=== PATIENT | female | born 1950 | race African-American/Black ===

== ENCOUNTER 2019-06-30 01:25 | Inpatient (IN) | payer MEDICARE ==
[2019-06-30] VITALS (7 sets, daily range): BP systolic 113–178; BP diastolic 52–76; Ht 170.2 cm; Wt 89.1 kg
[~2019-06-30] VITALS: Ht 170.2 cm; Wt 89.1 kg
[2019-06-30] MEDS ORDERED: LOSARTAN-HCTZ1 EAC1 PO (01:33)
[2019-06-30] MEDS ORDERED: BUPROPION XL150 MG PO (01:34)
[2019-06-30] MEDS ORDERED: ZYLOPRIM100 MG PO (01:34)
[2019-06-30] MEDS ORDERED: METOPROLOL TART25 MG (01:34)
[2019-06-30] MEDS ORDERED: HYDROXYUREA500 MG GT (01:35)
[2019-06-30] MEDS ORDERED: K-TAB10 MEQ PO (01:35)
[2019-06-30] MEDS ORDERED: NORVASC10 MG PO (01:35)
[2019-06-30] MEDS ORDERED: PLAVIX75 MG PO (01:36)
[2019-06-30] MEDS ORDERED: LIPITOR80 MG PO (01:36)
[2019-06-30] MEDS ORDERED: BAYER CHEWABLE81 MG PO (01:55)
[2019-06-30 01:58] LABS: HEMATOCRIT 41.7 % (36.0-48.0); HEMOGLOBIN 13.3 g/dL (12-16); MCH 23.8 pg (26.0-34.0); MCHC 31.9 g/dL (31.0-37.0); MCV 74.6 fL (80.0-100.0); RBC 5.59 10x6/uL (4.00-5.40); RDW 24.9 % (11.5-14.5); WBC 2.3 10x3/uL (4.8-10.8)
[2019-06-30 02:01] LABS: PLATELET COUNT 14 10x3/uL (130-400)
[2019-06-30 02:04] LABS: CALC OSMOLALITY 278 mosm/kg (275-300); CALCIUM 9.6 mg/dL (8.5-10.1); CARBON DIOXIDE 26.8 mmol/L (21.0-32.0); CHLORIDE - SERUM 103 mmol/L (98-107); GLUCOSE 96 mg/dL (74-106); POTASSIUM - SERUM 3.1 mmol/L (3.5-5.1); SODIUM 139 mmol/L (136-145); UREA NITROGEN 14 mg/dL (7-18); eGFR NON AFRICAN AMERICAN 58 mL/min (90-120)
[2019-06-30 02:05] LABS: APTT 29.5 SECONDS (22.8-39.4); BILIRUBIN NEGATIVE (NEGATIVE); GLUCOSE NEGATIVE (NEGATIVE); KETONE NEGATIVE (NEGATIVE); NITRITE NEGATIVE (NEGATIVE); PROTIME 13.1 SECONDS (11.6-15.0); UROBILINOGEN NORMAL (NORMAL)
[2019-06-30 02:20] LABS: ALBUMIN 3.9 g/dL (3.4-5.0); ALKALINE PHOSPHATASE 121 U/L (30-120); ALT (SGPT) 39 U/L (10-68); BILIRUBIN - TOTAL 1.04 mg/dL (0.2-1.3); CKMB 0.2 U/L (0.0-3.6); CREATINE KINASE 110 UL (21-215); MAGNESIUM - SERUM 2.3 mg/dL (1.8-2.4); PROTEIN - SERUM 7.8 g/dL (6.4-8.2)
[2019-06-30 02:21] LABS: TROPONIN-I < 0.017 ng/mL (0.000-0.060)
--- NOTE | 2019-06-30 02:25 | NUR ---
BLOOD CONSENT FORMS SIGNED BY PATIENT
--- NOTE | 2019-06-30 02:29 | NUR ---
PT GIVEN BLANKET, DENIES ANY FURTHER NEEDS AT THIS TIME. WILL CONTINUE TO MONITOR.
[2019-06-30 02:44] LABS: EOSINOPHILS 2 % (0-7); LYMPHOCYTES 65 % (15-50); MONOCYTES 6 % (2-11); NEUTROPHILS 27 % (40-80); PLATELET ESTIMATE DECREASED
[2019-06-30 07:18] LABS: CKMB 0.3 U/L (0.0-3.6); CREATINE KINASE 101 UL (21-215)
[2019-06-30 07:20] LABS: TROPONIN-I < 0.017 ng/mL (0.000-0.060)
--- NOTE | 2019-06-30 08:07 | NUR ---
resting in bed, no distress noted, alert and o, sl in place, cont to monitor
[2019-06-30 11:05] LABS: CKMB 0.3 U/L (0.0-3.6); CREATINE KINASE 111 UL (21-215); TROPONIN-I < 0.017 ng/mL (0.000-0.060)
--- NOTE | 2019-06-30 11:17 | NUR ---
immune globulin started at 1115, vitals wnl, cont to monitor
[2019-07-01 05:05] VITALS: BP 134/59
[2019-07-01 05:21] LABS: BASOPHILS 0 % (0-2); EOSINOPHILS 0.6 % (0-7); HEMATOCRIT 37.1 % (36.0-48.0); HEMOGLOBIN 11.7 g/dL (12-16); IMMATURE GRANULOCYTES 0.6 % (0-5); LYMPHOCYTES 37.9 % (15-50); MCH 23.6 pg (26.0-34.0); MCHC 31.5 g/dL (31.0-37.0); MCV 74.9 fL (80.0-100.0); MONOCYTES 14.9 % (2-11); RBC 4.95 10x6/uL (4.00-5.40); RDW 24.8 % (11.5-14.5)
[2019-07-01 05:29] LABS: PLATELET COUNT 11 10x3/uL (130-400); WBC 1.6 10x3/uL (4.8-10.8)
[2019-07-01 05:30] LABS: CALCIUM 8.6 mg/dL (8.5-10.1); CARBON DIOXIDE 25.2 mmol/L (21.0-32.0); CREATININE - SERUM 0.9 mg/dL (0.6-1.3); POTASSIUM - SERUM 3.2 mmol/L (3.5-5.1)
--- NOTE | 2019-07-01 07:10 | NUR ---
ALERT AND ORIENTED. UP AD KATERINA. NO C/O PAIN. NO S/S OF ACUTE DISTRESS NOTED. PUT ON NEUTROPENIC PRECAUTIONS THIS AM D/T WBC 1.7. IV TO LEFT HAND, SL. SITE PATENT WITHOUT REDNESS OR SWELLING. POTASSIUM 3.2 THIS AM, WILL FOLLOW ELECTROLYTE PROTOCOL. DENIES ANY NEEDS AT THIS TIME. CALL LIGHT IN REACH. WILL CONTINUE TO MONITOR.
[2019-07-01 08:33] VITALS: BP 114/71
[2019-07-01 12:05] VITALS: BP 131/66
[2019-07-01 15:27] LABS: BASOPHILS 0 % (0-2); EOSINOPHILS 0.2 % (0-7); HEMATOCRIT 38.7 % (36.0-48.0); IMMATURE GRANULOCYTES 0.8 % (0-5); LYMPHOCYTES 7.1 % (15-50); MCH 23.8 pg (26.0-34.0); MCV 76.8 fL (80.0-100.0); MONOCYTES 7.3 % (2-11); NEUTROPHILS 84.6 % (40-80); RBC 5.04 10x6/uL (4.00-5.40); RDW 25.2 % (11.5-14.5)
[2019-07-01 15:28] LABS: WBC 4.8 10x3/uL (4.8-10.8)
[2019-07-01 15:29] LABS: PLATELET COUNT 17 10x3/uL (130-400)
[2019-07-01 15:41] LABS: PLATELET ESTIMATE DECREASED
--- NOTE | 2019-07-01 17:43 | EC ---
PATIENT:ZAID MITCHELL DATE OF SERVICE: 06/30/19 SEX: F MEDICAL RECORD: [id number] DATE OF : [birth year] LOCATION:[facility] AGE OF PATIENT: 68 ADMISSION DATE: 06/30/19 REFERRING PHYSICIAN: INTERPRETING PHYSICIAN: CLARITA ENGEL MD ECHOCARDIOGRAM REPORT ECHO CHARGES 4 ECHO COMPLETE Date: 06/30/19 CLINICAL DIAGNOSIS: CHF ECHOCARDIOGRAPHIC MEASUREMENTS (adult normal given) AC root (d.<3.7cm) 3.4 cm LV Septum d (<1.2 cm> 0.9 cm Valve Excursion 2.2 cm LV Septum (systole) 1.7 cm Left Atria (s.<4.0cm> 3.3 cm LVPW d(<1.2cm) 1.1 cm RV (d.<2.3cm) 2.1 cm LVPW (sytole) 1.6 cm LV diastole(<5.6CM) 4.5 cm MV E-F(>70mm/sec) cm LV systole 2.1 cm LVOT Diameter 2.0 cm MV exc.(>10mm) cm Est.ejection fraction (50-75%) % DOPPLER: LVIT cm/sec A 87.0 cm/sec E 104 cm/sec LA cm/sec RVSP 36.0 mmHg LVOT 126 cm/sec AOP1/2T m/s Asc. Ao 153 cm/sec RVOT 75.0 cm/sec RA cm/sec PA 95.0 cm/sec AV Gradient Peak 9.3 mmHg AV Mean 5.5 mmHg AV Area 2.4 cm MV Gradient Peak 6.8 mmHg MV Mean mmHg MV Area cm COMMENTS: Vacuum Closing Machine Operator: Bo OCONNELLOE Polishing Wheel Setter: 4 Dr. Engel TAPE# PACS Pericardial Effusion N DATE OF SERVICE: 06/30/2019 PROCEDURE: Echocardiogram. FINDINGS: Left ventricle shows mild left ventricular hypertrophy. The patient has 60% ejection fraction. Inflow characteristics consistent with diastolic dysfunction. Left atrium is normal size and function. Aortic valve appears to be normal. ECHOCARDIOGRAM REPORT [id number] ZAID MITCHELL Mitral valve shows trace mitral regurgitation, otherwise normally structural. Tricuspid valve is normal structure and function. The right ventricular systolic pressures are 36 mmHg, mildly elevated. Normal pericardium without effusion. Right ventricle is normal size and function. Right atrium is normal size, normal function. Pulmonic valve is normal. IMPRESSION: The patient has evidence of mild left ventricular hypertrophy and possible hypertensive heart disease. The patient has normal LV systolic function. The patient has mildly elevated tricuspid valve and right ventricular systolic pressures. TRANSINT:[id number] Voice Confirmation ID: [id number] DOCUMENT ID: [id number] CLARITA ENGEL MD at 1743 CC: [id number] DICTATION DATE: 07/01/19 1124 CORPORATE LAW SPECIALIST: 07/01/19 1336 ADM IN [place] [id number] [place] [address]
--- NOTE | 2019-07-01 18:00 | NUR ---
INFUSION OF 2 UNITS OF PLATELETS INFUSED. NO COMPLICATIONS. VITAL SIGNS STABLE. PATIENT'S WBC 4.8, TAKING PATIENT OFF NEUTROPENIC PRECAUTIONS.
--- NOTE | 2019-07-01 18:26 | NUR ---
ALERT AND ORIENTED. NO C/O PAIN. NO S/S OF ACUTE DISTRESS NOTED. DENIES ANY NEEDS AT THIS TIME. CALL LIGHT IN REACH. WILL CONTINUE TO MONITOR.
--- NOTE | 2019-07-01 18:32 | NUR ---
I have reviewed this patient and I concur with the Shift Assessment completed by the Licensed Practical Nurse today this shift.
[2019-07-01 18:48] LABS: BASOPHILS 0.2 % (0-2); EOSINOPHILS 0.2 % (0-7); HEMOGLOBIN 11.8 g/dL (12-16); IMMATURE GRANULOCYTES 6.7 % (0-5); LYMPHOCYTES 4.8 % (15-50); MCH 23.8 pg (26.0-34.0); MCHC 31.1 g/dL (31.0-37.0); MCV 76.6 fL (80.0-100.0); MONOCYTES 7.9 % (2-11); NEUTROPHILS 80.2 % (40-80); PLATELET COUNT 101 10x3/uL (130-400); RBC 4.96 10x6/uL (4.00-5.40); RDW 25.2 % (11.5-14.5); WBC 6.5 10x3/uL (4.8-10.8)
--- NOTE | 2019-07-01 19:58 | NUR ---
AWAKE,ALERT.SITTING UP IN BED WATCHING TV, NO COMPLAITNS AT PRESENT TIME.SL TO LFA INTACT WITHOUT REDNESS OR EDEMA NOTED. CL LIGHT IN REACH
[2019-07-01 21:00] VITALS: BP 144/71
[2019-07-02 04:42] VITALS: BP 136/72
[2019-07-02 05:28] LABS: CALCIUM 9.3 mg/dL (8.5-10.1); CARBON DIOXIDE 24.8 mmol/L (21.0-32.0); CREATININE - SERUM 1.1 mg/dL (0.6-1.3); POTASSIUM - SERUM 3.8 mmol/L (3.5-5.1)
[2019-07-02 06:03] LABS: BASOPHILS 0.1 % (0-2); EOSINOPHILS 0.1 % (0-7); HEMATOCRIT 38.7 % (36.0-48.0); HEMOGLOBIN 12.2 g/dL (12-16); IMMATURE GRANULOCYTES 0.8 % (0-5); LYMPHOCYTES 12.6 % (15-50); MCH 24.2 pg (26.0-34.0); MCHC 31.5 g/dL (31.0-37.0); MCV 76.8 fL (80.0-100.0); MONOCYTES 11.1 % (2-11); NEUTROPHILS 75.3 % (40-80); PLATELET COUNT 98 10x3/uL (130-400); RBC 5.04 10x6/uL (4.00-5.40); RDW 25.6 % (11.5-14.5); WBC 7.4 10x3/uL (4.8-10.8)
--- NOTE | 2019-07-02 07:20 | NUR ---
PT LYING IN BED ON RT SIDE ASLEEP, EASILY AWAKENED, NO NEEDS VOICED AT THIS TIME, PT TO HAVE BONE BIOPSY TODAY, NO CONSENTS ON CHART AT THIS TIME, NO ORDERS FOR CONSENT, CL IN REACH, BED IN LOWEST POSITION, ASSUME PT CARE
[2019-07-02 07:29] LABS: PLATELET ESTIMATE DECREASED
[2019-07-02 08:16] VITALS: BP 144/74
--- NOTE | 2019-07-02 09:00 | NUR ---
HAD PT SIGN CONSENTS FOR BIOPSY AND PULLED FLUIDS ORDERED. ALL QUESTIONS ANSWERED, NO OTHER NEEDS AT THIS TIME, COMNTINUE WITH PLAN OF CARE
--- NOTE | 2019-07-02 09:00 | NUR ---
NPO FOR PROCEDURE TODAY.WITHOUT NEEDS
[2019-07-02 13:39] VITALS: BP 129/69
[2019-07-02 16:20] VITALS: BP 119/56
[2019-07-02 20:00] VITALS: BP 137/64
--- NOTE | 2019-07-02 20:10 | NUR ---
SITTING UP IN BED WATCHING TV. ALERT AND ORIENTED X4. DENIES PAIN. DRSG NOTED TO RT HIP BIOPSY AREA IS C/D/I. RESP EVEN AND NONLABORED. NO DISTRESS. AMBULATORY. TELEMETRY SHOWS SR WITH RATE OF 64. RARE NONPROD COUGH NOTED. SALINE LOCK NOTED TO LT WRIST. NEUTROPENIC PRECAUTIONS IN USE. CL IN REACH.
[2019-07-03] VITALS: BP 125/49
--- NOTE | 2019-07-03 03:41 | NUR ---
HAS RESTED WELL SO FAR THIS SHIFT. NO DISTRESS. LYING IN BED WITH EYES CLOSED. RESP NONLABORED. CL IN REACH.
[2019-07-03 04:00] VITALS: BP 127/50
[2019-07-03 05:52] LABS: ALBUMIN 3.4 g/dL (3.4-5.0); ANION GAP 9.4 mmol/L (8-16); BILIRUBIN - TOTAL 0.8 mg/dL (0.2-1.3); CALCIUM 9.2 mg/dL (8.5-10.1); CARBON DIOXIDE 28.4 mmol/L (21.0-32.0); POTASSIUM - SERUM 3.8 mmol/L (3.5-5.1); PROTEIN - SERUM 8.6 g/dL (6.4-8.2)
[2019-07-03 06:16] LABS: BASOPHILS 0.1 % (0-2); EOSINOPHILS 0.2 % (0-7); HEMATOCRIT 38.4 % (36.0-48.0); HEMOGLOBIN 12.3 g/dL (12-16); IMMATURE GRANULOCYTES 1.3 % (0-5); LYMPHOCYTES 11.6 % (15-50); MCH 24.3 pg (26.0-34.0); MCV 75.9 fL (80.0-100.0); MONOCYTES 9.5 % (2-11); NEUTROPHILS 77.3 % (40-80); RBC 5.06 10x6/uL (4.00-5.40); RDW 25.8 % (11.5-14.5); WBC 8.7 10x3/uL (4.8-10.8)
[2019-07-03 06:21] LABS: PLATELET COUNT 60 10x3/uL (130-400)
--- NOTE | 2019-07-03 07:48 | NUR ---
ALERT AND ORIENTED. LUNGS CLEAR BILATERALLY. HEART SOUNDS S1 AND S2 HEARD IN ALL PHILIPPE. BOWEL SOUNDS ACTIVE X 4. SKIN INTACT WITHOUT REDNESS. IV TO LEFT WRIST SL PATENT WITHOUT REDNESS. DENIES PAIN. DENIES NEEDS. BED LOW. CALL ANDUJAR AND PERSONAL ITEM IN REACH. WILL CONTINUE TO MONITOR.
[2019-07-03 08:55] VITALS: BP 136/76
[2019-07-03 10:56] LABS: PLATELET ESTIMATE DECREASED
[2019-07-03 10:58] LABS: ANISOCYTOSIS OCC; CRENATED CELLS OCC; ROULEAUX OCC
[2019-07-03] MEDS ORDERED: PROTONIX40 MG PO (11:05)
[2019-07-03] MEDS ORDERED: PREDNISONE20 MG PO (11:05)
[2019-07-03] MEDS ORDERED: HCTZ25 MG PO (11:06)
--- NOTE | 2019-07-03 14:46 | NUR ---
DISCHARGE EDUCATION PROVIDED BOTH WRITTEN AND VERBAL. VERBALIZED UNDERSTANDING. DENIES QUESTIONS. IV REMOVED FROM LEFT WRIST WITH TIP INTACT. PATIENT INFORMATION FAXED TO [employer] PER REQUEST. COPY PROVIDED TO PATIENT. DENIES FURTHER NEEDS. PATIENT DC HOME WITH ALL BELONGINGS.
--- NOTE | 2019-07-03 17:24 | MORECARE ---
CASE MANAGEMENT DISCHARGE SUMMARY PATIENT: ZAID MITCHELL UNIT: [id number] ADM DATE: 06/30/19 AGE: 68 : 50 SEX: F ROOM/BED: D.2225 AUTHOR: ADINA,DOC PHYSICIAN: REFERRING PHYSICIAN: JACKY BUCK MD DATE OF SERVICE: 07/03/19 Discharge Plan Patient Name: ZAID MITCHELL Facility: [facility]:[place] : 1950 Planned Disposition: Home Anticipated Discharge Date: Discharge Date: 07/03/2019 Expected LOS: Initial Reviewer: [email or web address] Initial Review Date: 06/30/2019 Generated: 07/03/19 6:23 pm DCPIA - Discharge Planning Initial Assessment Updated by STEVE: Elba Collins on 07/03/19 5:22 pm * Is the patient Alert and Oriented? Yes * How many steps to enter\exit or inside your home? Ramp * PCP DR. Rosemary SANTOS * Pharmacy [facility] * Preadmission Environment Home Alone * ADLs Independent * Other Equipment WALKER, CANE * List name and contact numbers for known caregivers / representatives who currently or will assist patient after discharge: RIKI HUANG - [facility] [phone] * Verbal permission to speak to the caregivers and representatives has been obtained from the patient. Yes * Community resources currently utilized None * Additional services required to return to the preadmission environment? No * Can the patient safely return to the preadmission environment? Yes * Has this patient been hospitalized within the prior 30 days at any hospital? No External Providers External Provider: OTHER-OTHER Next Contact Date: Service Request Date: Service Type: Resolution: Reviewer: Comments: Coverage Notice Reviewer: [email or web address] Parveen Collins Notice Issued Date-Time: 07/03/2019 12:30 Notice Type: IM Discharge Notice Notice Delivered To: Patient Relationship to Patient: Self Marina Sales And Service Supervisor Name: Delivery Method: HAND - Hand Delivered Adalgisa Days: Prior Verbal Notification: Recipient Understood Notice: Yes Recipient Signature: Yes Med Rec Note Co-signed by Attending: Coverage Notice Comment: Reviewer: [id number] Parveen Collins Notice Issued Date-Time: 07/03/2019 12:30 Notice Type: Patient Choice Letter Notice Delivered To: Patient Relationship to Patient: Self Marina Sales And Service Supervisor Name: Delivery Method: HAND - Hand Delivered Adalgisa Days: Prior Verbal Notification: Recipient Understood Notice: Yes Recipient Signature: Yes Med Rec Note Co-signed by Attending: Coverage Notice Comment: No preference for Home health Patient Name: ZAID MITCHELL Page [phone] at 1724 All edits/amendments must be made on the electronic document DICTATION DATE: 07/03/191722 SLITTING AND SHIPPING SUPERVISOR: AKIRA 07/03/191722 RPT#: [id number] DC DATE:07/03/19 STATUS: DIS IN [facility] [address] [place] [address] END OF REPORT
--- NOTE | 2019-07-03 17:39 | MORECARE ---
CASE MANAGEMENT DISCHARGE SUMMARY PATIENT: ZAID MITCHELL UNIT: [id number] ADM DATE: 06/30/19 AGE: 68 : 50 SEX: F ROOM/BED: D.2225 AUTHOR: ADINA,DOC PHYSICIAN: REFERRING PHYSICIAN: JACKY BUCK MD DATE OF SERVICE: 07/03/19 Discharge Plan Patient Name: ZAID MITCHELL Facility: [facility]:[place] : 1950 Planned Disposition: Home Anticipated Discharge Date: Discharge Date: 07/03/2019 Expected LOS: Initial Reviewer: [email or web address] Initial Review Date: 06/30/2019 Generated: 07/03/19 6:39 pm Comments DCP- Discharge Planning Updated by [email or web address]: Elba Collins on 07/03/19 4:[address] Patient Name: ZAID MITCHELL Admission Status: ER Accout number: [id number] Admission Date: 06-30-2019 : 1950 Admission Diagnosis:SHORTNESS OF BREATH Attending: JACKY BUCK Current LOS: 3 Anticipated DC Date: Planned Disposition: Home Primary Insurance: MEDICARE A & B Discharge Planning Comments: CM met with patient to complete initial dc planning assessment. CM educated patient on the CM role and verbal consent given by patient to complete assessment. Patient lives at home alone. At discharge patient plans to return home and feels this is a safe discharge. CM discussed availability of home health, rehab services, and medical equipment. Patient denied known discharge needs at this time. CM will continue to follow and will assist as needed with dc plans/needs. Plan to discharge today will need labs drawn twice weekly and CM has been unable to get PCP office to call back in regards to patient getting labs drawn. KAITLYNN signed for . CM spoke with Terri Olivares in [place] [phone] fax [phone]. [facility] will admit patient this week and draw labs as ordered. CM will continue to follow and assist as needed with discharge planning / needs. Integration Architect: Elba Collins DCPIA - Discharge Planning Initial Assessment Updated by [email or web address]: Elba Collins on 07/03/19 5:22 pm * Is the patient Alert and Oriented? Yes * How many steps to enter\exit or inside your home? Ramp * PCP DR. Rosemary SANTOS * Pharmacy [facility] * Preadmission Environment Home Alone * ADLs Independent * Other Equipment WALKER, CANE * List name and contact numbers for known caregivers / representatives who currently or will assist patient after discharge: RIKI HUANG - - [phone] * Verbal permission to speak to the caregivers and representatives has been obtained from the patient. Yes * Community resources currently utilized None * Additional services required to return to the preadmission environment? No * Can the patient safely return to the preadmission environment? Yes * Has this patient been hospitalized within the prior 30 days at any hospital? No Coverage Notice Reviewer: [email or web address] Collins Notice Issued Date-Time: 07/03/2019 12:30 Notice Type: IM Discharge Notice Notice Delivered To: Patient Relationship to Patient: Self Fruit Farmworker Name: Delivery Method: HAND - Hand Delivered Adalgisa Days: Prior Verbal Notification: Recipient Understood Notice: Yes Recipient Signature: Yes Med Rec Note Co-signed by Attending: Coverage Notice Comment: Reviewer: [email or web address] Collins Notice Issued Date-Time: 07/03/2019 12:30 Notice Type: Patient Choice Letter Notice Delivered To: Patient Relationship to Patient: Self Fruit Farmworker Name: Delivery Method: HAND - Hand Delivered Adalgisa Days: Prior Verbal Notification: Recipient Understood Notice: Yes Recipient Signature: Yes Med Rec Note Co-signed by Attending: Coverage Notice Comment: No preference for Home health Last DP export: 07/03/19 4:24 p Patient Name: ZAID MITCHELL Page [phone] at 1739 All edits/amendments must be made on the electronic document DICTATION DATE: 07/03/191738 UNDERWEAR HEMMER: AKIRA 07/03/191738 RPT#: [id number] DC DATE:07/03/19 STATUS: DIS IN [facility] [address] [place] [address] END OF REPORT
== END 2019-07-03 14:54 | disposition home or self-care (01) | DRG 813 ==
LOC: D.ER 01:25 → D.MS 03:50
PROVIDERS: Emergency Medicine; Family Medicine; Internal Medicine Hematology & Oncology; Radiology Diagnostic Radiology; ADMIT Internal Medicine Nephrology; ATTEND Internal Medicine Nephrology
PROC: 07DR3ZX Extraction of Iliac Bone Marrow, Percutaneous Approach, Diagnostic (ICD-10-PCS; principal; 2019-07-02 09:00)
DX: D69.6 Thrombocytopenia, unspecified (principal); C94.6 Myelodysplastic disease, not elsewhere classified; D69.3 Immune thrombocytopenic purpura; D75.9 Disease of blood and blood-forming organs, unspecified; D45 Polycythemia vera; D70.9 Neutropenia, unspecified; I25.119 Atherosclerotic heart disease of native coronary artery with unspecified angina pectoris; E87.6 Hypokalemia; I10 Essential (primary) hypertension; E78.5 Hyperlipidemia, unspecified; I25.10 Atherosclerotic heart disease of native coronary artery without angina pectoris; K21.9 Gastro-esophageal reflux disease without esophagitis; I11.0 Hypertensive heart disease with heart failure